=== PATIENT | female | born 1995 | race Two or more races ===

== ENCOUNTER 2024-11-28 20:27 | Emergency (ER) | payer OTHER ==
[~2024-11-28] VITALS: Ht 165.1 cm; Wt 131.0 kg
--- NOTE | 2024-11-28 21:53 | DVH ---
EXAM: XY CHEST PORTABLE TECHNIQUE: Single frontal chest radiograph CLINICAL HISTORY: palpitations COMPARISON: None Findings/Impression: Frontal chest radiograph demonstrates no acute osseous or superficial soft tissue abnormalities. The trachea is midline. The cardiac silhouette and mediastinum are within normal limits. No pneumothorax, pleural effusions, or consolidations.
[2024-11-28 22:01] LABS: Hematocrit 34.5 % (36.0-46.0); Hemoglobin 11.1 g/dL (12.2-16.2); Mean Corpuscular Hemoglobin 23.9 pg (28.0-32.0); Mean Corpuscular Volume 73.9 fL (80.0-100.0); Nucleated Red Blood Cells % 0.1 %
--- NOTE | 2024-11-28 22:11 | ED.PDOC ---
History of Present Illness HPI Comments 29 y/o morbidly obese F presents with c/c palpitations and bilateral upper arm discomfort. Patient reports sudden, unprovoked onset of symptoms this afternoon at around 1600. Symptoms are reported to have lasted 2 hours in duration prior to subsiding and returning, again, within an hour prior to arrival. No history of similar symptoms in the past. No pertinent medical, surgical, social, or family history. At time of assessment, patient reports on symptoms subsiding, again, and is asymptomatic. Heart rate of 128 upon arrival to ED triage. Chief Complaint: Palpitations Time Seen by MD: 20:20 Reviewed Notes: Nurses Notes, Medications, Allergies Allergies: Coded Allergies: NO KNOWN ALLERGIES (Unverified , 11/28/24) Information Source: Patient Mode of Arrival: Ambulatory Severity: Moderate Timing: Hours Duration: Hours Prehospital treatment: None Past Medical History PAST MEDICAL HISTORY: Denies Surgical History: DAIRY CHEMIST History: Denies all DAIRY CHEMIST Hx Family History Family History: Unknown Social History Smoker: Non-Smoker Alcohol: Denies ETOH Use Drugs: Denies Drug Use Lives In: Home All Other Systems: Reviewed and Negative (Comprehensive review of systems are negative unless otherwise stated in HPI) Physical Exam General Appearance: No Apparent Distress, Obese HEENT: Other (Pupils and face symmetric. Moist mucous membranes.) Neck: Full Range of Motion, Normal Inspection Respiratory: Lungs Clear, No Accessory Muscle Use, No Respiratory Distress, Normal Breath Sounds Cardiovascular: No Edema, No JVD, Tachycardia Breast Exam: Deferred Gastrointestinal: Non Tender, Soft Genitalia: Deferred Pelvic: Deferred Rectal: Deferred Extremities: Normal inspection, Normal range of motion, Non-tender, No pedal edema Neurologic: Alert (Oriented x4), Normal Affect, Other (Appears anxious. Ambulatory without difficulty.) Cerebellar Function: NOT DONE Reflexes: NOT DONE Skin: Dry, Normal Color, Warm Lymphatic: NOT DONE Was a procedure done? Was a procedure done?: No EKG EKG : Comments Sinus tach, rate 125, normal intervals, normal axis, Q-wave in lead 3, nonspecific T change. Differential Dx Considerations may include: arrhythmia, anxiety, PE, PA, ACS, URI, dehydration, electrolyte imbalance, viral syndrome, tachycardia, among others X-Ray, Labs, Meds, VS Vital Signs Date Time Temp Pulse Resp B/P (MAP) Pulse Ox O2 Delivery O2 Flow Rate FiO2 8/4/25 00:30 98.3 106 18 142/78 (99) 99 98.3 11/28/24 20:36 125 11/28/24 20:27 99.2 128 18 131/83 100 99.2 Lab Test 11/28/24 21:41 11/28/24 20:43 Range/Units Troponin I High Sensitivity < 3 L < 3 L </=34 ng/L White Blood Count 15.0 H 4.4-10.8 10^3/uL Red Blood Count 4.66 4.0-5.20 10^6/uL Hemoglobin 11.1 L 12.2-16.2 g/dL Hematocrit 34.5 L 36.0-46.0 % Mean Corpuscular Volume 73.9 L 80.0-100.0 fL Mean Corpuscular Hemoglobin 23.9 L 28.0-32.0 pg Mean Corpuscular Hemoglobin Concent 32.3 32.0-36.0 g/dL Red Cell Distribution Width 17.4 H 11.8-14.3 % Platelet Count 431 140-450 10^3/uL Mean Platelet Volume 7.7 6.9-10.8 fL Neutrophils (%) (Auto) 68.6 37.0-80.0 % Lymphocytes (%) (Auto) 25.0 10.0-50.0 % Monocytes (%) (Auto) 5.7 0.0-12.0 % Eosinophils (%) (Auto) 0.4 0.0-7.0 % Basophils (%) (Auto) 0.3 0.0-2.0 % Neutrophils # (Auto) 10.3 H 1.6-8.6 10 ^3/uL Lymphocytes # (Auto) 3.8 0.4-5.4 10 ^3/uL Monocytes # (Auto) 0.9 0-1.3 10 ^3/uL Eosinophils # (Auto) 0.1 0-0.8 10 ^3/uL Basophils # (Auto) 0 0-0.2 10 ^3/uL Nucleated Red Blood Cells 0.1 % D-Dimer, Quantitative < 0.19 0.0-0.49 mg/L FEU Sodium Level 141 136-145 mmol/L Potassium Level 3.6 3.5-5.1 mmol/L Chloride Level 105 98-107 mmol/L Carbon Dioxide Level 23 20-31 mmol/L Anion Gap 13 5-15 Blood Urea Nitrogen 13 9-23 mg/dL Creatinine 0.86 0.550-1.02 mg/dL Glomerular Filtration Rate Calc 94 >90 mL/min BUN/Creatinine Ratio 15.1 10.0-20.0 Serum Glucose 124 H 74-106 mg/dL Calcium Level 9.4 8.7-10.4 mg/dL B-Type Natriuretic Peptide 9.50 0-100 pg/mL [place] [address] Ph: [phone] DIAGNOSTIC IMAGING Diagnostic Imaging Report : [id number] Signed PATIENT: OTF MARTIN ACCT: [id number] UNIT: [id number] : 1995 LOC: ER ROOM / BED: / AGE / SEX: 29 / F ADM STATUS: REG ER SERVICE 28 ORDERING PHYSICIAN: JAMES NORRIS MD PROCEDURE(s): CXRP - CHEST PORTABLE REASON: palpitations ORDER NUMBER(s): [id number], ACCESSION NUMBER(s): [id number] EXAM: XY CHEST PORTABLE TECHNIQUE: Single frontal chest radiograph CLINICAL HISTORY: palpitations COMPARISON: None Findings/Impression: Frontal chest radiograph demonstrates no acute osseous or superficial soft tissue abnormalities. The trachea is midline. The cardiac silhouette and mediastinum are within normal limits. No pneumothorax, pleural effusions, or consolidations. ATED BY: LOLITA MARKS DO DICTATED DATE/TIME: 11/28/242150 SIGNED BY: LOLITA MARKS DO SIGNED DATE/TIME: 11/28/242150 CC: X-Ray, Labs, Meds, VS Comment 29-year-old female with no significant past medical history complaining of palpitations Vitals remarkable for heart rate 128 Exam remarkable for tachycardia Rhythm strip independently interpreted by me: Sinus tach, rate 125, no ectopy. Chest x-ray Findings/Impression: Frontal chest radiograph demonstrates no acute osseous or superficial soft tissue abnormalities. The trachea is midline. The cardiac silhouette and mediastinum are within normal limits. No pneumothorax, pleural effusions, or consolidations. CBC, basic metabolic panel, BNP, troponin and D-dimer unremarkable Patient treated with the following in the ED: 1 L 0.9 normal saline IV bolus with improvement of heart rate to 100. Other vitals were stable. Hospitalization was considered, however patient had rapid improvement of symptoms with treatment in the ED, and I no longer feel hospitalization is ne cessary. Patient now appears stable for discharge with close outpatient follow- up with her primary physician for referral to a caramel candy maker. Time of 1ST Reevaluation: 20:50 Reevaluation 1ST: Unchanged Patient Education/Counseling: Diagnosis, Treatment, Need For Follow Up Family Education/Counseling: No Family Present SEPSIS Sepsis Screen Date sepsis recognized/suspect: Nov 28, 2024 Time Sepsis recognized/suspect: 2026 Recent Procedure: No On Antibiotic Therapy: No Respiratory Rate >20: No Heart Rate >90: Yes Temp<36 C (96.8 F) or >38.3 C: No SBP <90 or MAP <65 mmHG: No New Acute Mental Status Change: No Is the patient on CPAP, BIPAP,: No SEPSIS EXCLUSION NOTE: Sepsis Exclusion Note: Patient presents with SIRS criteria, but the SIRS response is attributed to [hypovolemia/anxiety ], not a suspected infection. Sepsis bundle is not initiated at this time, due to this reason. Further management will focus on the treatment of the above condition (s). Physician Orders Electrocardigram (11/28/24 20:29) Chest Portable (11/28/24 21:29) Vital Signs Date Time Temp Pulse Resp B/P (MAP) Pulse Ox O2 Delivery O2 Flow Rate FiO2 11/29/24 00:30 98.3 106 18 142/78 (99) 99 98.3 11/28/24 20:36 125 11/28/24 20:27 99.2 128 18 131/83 100 99.2 Laboratory Tests Test 11/28/24 20:43 White Blood Count 15.0 10^3/uL (4.4-10.8) H Departure 1 Departure Time of Disposition: 00:55 Impression: Primary Impression: Palpitations Additional Impression: Leukocytosis Disposition: HOME / SELF CARE / HOMELESS Condition: Stable Additional Instructions: Your blood tests showed an elevated white blood cell count, which can be seen with infections or stress. There was no other finding to suggest an infection. Your EKG showed your heart rate was elevated. Your heart rate has come back to normal after IV fluids. Your chest x-ray was normal. Follow-up with your primary doctor in 1-2 days for referral to a caramel candy maker for further evaluation of your palpitations. Return to ER for persistent or worsening symptoms. Discharged With: Relative Critical Care Note Critical Care Time?: No Stability Stability form required: No Heart Score Heart Score: Heart Score Response (Comments) Value History N/A 0 EKG N/A 0 Age N/A 0 Risk Factors N/A 0 Troponin N/A 0 Total 0 I personally scribed for JAMES NORRIS MD ([email or web address]) on 11/28/24 at 22:11. Electronically submitted by Jose Aviles ([email or web address]). JAMES NORRIS MD Nov 28, 2024 22:11
[2024-11-28 22:12] LABS: Chloride 105 mmol/L (98-107); Potassium 3.6 mmol/L (3.5-5.1); Sodium 141 mmol/L (136-145)
[2024-11-28 22:13] LABS: Anion Gap 13 (5-15); Carbon Dioxide 23 mmol/L (20-31)
[2024-11-28 22:14] LABS: Calcium 9.4 mg/dL (8.7-10.4)
[2024-11-28 22:18] LABS: BUN/Creatinine Ratio 15.1 (10.0-20.0); Blood Urea Nitrogen 13 mg/dL (9-23)
[2024-11-28 22:23] LABS: Glucose 124 mg/dL (74-106)
[2024-11-29 01:27] VITALS: PULSE 104; RESP 12; O2SAT 99
[2024-11-29] MEDS: SODIUM CHLORIDE 0.9% 1,000 ML IV ONE (01:54)
[2024-11-29 02:39] LABS: Urine Protein, UAD Negative (Negative)
[2024-11-29 03:51] VITALS: BP 132/56; PULSE 93; RESP 20; TEMP 98; O2SAT 100
--- NOTE | 2024-11-30 06:37 | ECG ---
[facility] Test Date: 2024-11-28 Test Time: 20:36:39 Pat Name: OTF MARTIN Department: ER Room: Gender: F Central Office Installer: DOMINIQUE : 1995 Requested By: JAMES LEDEZMA Order Number: [id number] Reading MD: Measurements Intervals [place] Rate: 125 P: 32 MT: 130 QRS: 24 QRSD: 76 T: -4 QT: 311 QTc: 449 Interpretive Statements Sinus tachycardia Borderline T abnormalities, inferior leads Please click the below link to view image of tracing.
== END 2024-11-29 05:00 | disposition home or self-care (01) ==
LOC: ER 20:27
DX: D72.829 Elevated white blood cell count, unspecified (principal); R00.2 Palpitations; E66.01 Morbid (severe) obesity due to excess calories; Z98.890 Other specified postprocedural states; Z68.42 Body mass index [BMI] 45.0-49.9, adult
CPT/HCPCS: 36415; 71045; 80048; 81001; 83880; 84484; 85025; 85379; 93005; 96360; 96361; 99285; J7030